=== PATIENT | male | born 1970 | race Caucasian/White ===

== ENCOUNTER 2016-07-02 00:34 | Emergency (ER) | payer SELFPAY ==
[~2016-07-02] VITALS: Ht 172.7 cm; Wt 87.0 kg
[~2016-07-02 00:34] MED LIST: IBUP-238 PO; LOVA40TA PO; METO50TA PO; ST JTAB PO
[2016-07-02 00:36] VITALS: BP 125/71; PULSE 70; RESP 16; TEMP 98.2; O2SAT 98
[2016-07-02] MEDS ORDERED: NEUR300C PO (01:06)
[2016-07-02] MEDS ORDERED: ACYC800T PO (01:06)
--- NOTE | 2016-07-02 01:10 | PD ---
HPI Chief Complaint: Skin Problem Time Seen by Provider: 01:07 Travel History International Travel<30 days: No Contact w/Intl Traveler<30days: No Traveled to known affect area: No History of Present Illness HPI 46-year-old white male presents to emergency Department with complaints of a skin rash to his right side. He states that he has been feeling under the weather for the last 5 days. He has had general malaise followed by pain in his right side. Now in the last 24 hours she's developed a rash. He is concerned that he may be mariano shingles. Pain is moderate. No alleviating factors. PFSH Past Medical History Hx Anticoagulant Therapy: Yes Anxiety: Yes Cardiovascular Problems: Yes (HTN) Cerebrovascular Accident: Yes (CVA 2012) Diabetes: Yes (BORDERLINE) Diminished Hearing: No Hypertension: Yes Immunizations Current: Yes Tetanus Vaccination: < 5 Years Past Surgical History Tonsillectomy: Yes (ADENOIDS ONLY) Social History Alcohol Use: No Tobacco Use: Yes (2 PPD) Substance Use: No Allergies-Medications (Allergen,Severity, Reaction): Coded Allergies: No Known Allergies (Unverified , 07/02/16) Reported Meds & Prescriptions Reported Meds & Active Scripts Active Neurontin (Gabapentin) 300 Mg Cap 300 Mg PO TID Acyclovir 800 Mg Tab 800 Mg PO 5 TIMES A DAY 7 Days Lovastatin 40 Mg Tab 40 Mg PO DAILY Metoprolol Tartrate 50 Mg Tab 50 Mg PO DAILY Motrin (Ibuprofen) 800 Mg Tab 800 Mg PO TID Lovastatin 40 Mg Tab 40 Mg PO HS Metoprolol Tartrate 50 mg (Metoprolol Tartrate) 50 Mg Tab 50 Mg PO DAILY Reported Aspirin Ec Low Strength (Aspirin) 81 Mg Tab 81 Mg PO DAILY Review of Systems Except as stated in HPI: all other systems reviewed are Neg Physical Exam Narrative GENERAL: Well-developed, well-nourished in no apparent distress. Nontoxic appearing. HEAD: Normocephalic, atraumatic. EYES: Pupils equal round and reactive. Extraocular motions intact. No scleral icterus. No injection or drainage. ENT: Nose clear. Throat without erythema, tonsillar hypertrophy or exudate. Uvula midline. Airway patent. NECK: Trachea midline. Supple, nontender, moves head freely. No central bony tenderness or spasm. CARDIOVASCULAR: Regular rate and rhythm without murmurs, gallops, or rubs. RESPIRATORY: Clear to auscultation. Breath sounds equal bilaterally. No wheezes , rales, or rhonchi. GASTROINTESTINAL: Abdomen soft, non-tender, nondistended. No hepato-splenomegaly , or palpable masses. No guarding. EXTREMITIES: No clubbing, cyanosis, or edema. No joint tenderness. BACK: Nontender without deformity. No flank tenderness. NEUROLOGICAL: Awake, alert and oriented x 3 .Cranial nerves grossly intact. Motor and sensory grossly within normal limits. Normal speech. Skin: Patient has a erythematous rash in a dermatomal fashion on the right posterior back and right side in the T4 distribution. Data Data Last Documented VS Vital Signs Date Time Temp Pulse Resp B/P Pulse Ox O2 Delivery O2 Flow Rate FiO2 07/02/16 00:36 98.2 70 16 125/71 98 MDM Medical Decision Making Medical Screen Exam Complete: Yes Emergency Medical Condition: Yes Medical Record Reviewed: Yes Differential Diagnosis MDM: High Differential diagnoses: Abscess, folliculitis, cellulitis, lymphangitis, abrasion, contact dermatitis, shingles Narrative Course Patient is given acyclovir 800 mg by mouth and Neurontin 300 mg by mouth. This is acute varicella zoster Diagnosis Primary Impression: aCUTE VARICELLA ZOSTER Patient Instructions: General Instructions Additional Instructions: Rest. Daily wound care with soap and water and apply calamine lotion. Acyclovir and Neurontin. Follow-up with the clinic this week. Call on Sunday for an appointment. Avoid young children or the elderly when you have an active rash. Return to the ER if any problems. Med/Other Pt SpecificInfo: Prescription(s) given, Wound Care Scripts Gabapentin (Neurontin)300 Mg [id number] Mg PO TID #30 CAP Ref 0 Prov:Alexander Calderón MD 07/02/16 Acyclovir 800 Mg [id number] Mg PO 5 TIMES A DAY 7 Days Ref 0 Prov:Alxeander Calderón MD 07/02/16 Disposition: DISCHARGE HOME Condition: Stable Meek Betancur Jul 02, 2016 01:10
[2016-07-02] MEDS ORDERED: GABAPENTIN 300 MG CAP PO ONE (01:15)
[2016-07-02] MEDS ORDERED: ACYCLOVIR 800 MG TAB PO ONE (01:15)
[2016-09-05] MEDS ORDERED: METO50TA PO (10:39)
== END 2016-07-02 02:01 | disposition home or self-care (01) ==
LOC: NEPB 00:34
DX: B02.9 Zoster without complications (principal); I10 Essential (primary) hypertension; F17.210 Nicotine dependence, cigarettes, uncomplicated
CPT/HCPCS: 99283

== ENCOUNTER 2016-12-23 09:40 | Emergency (ER) | payer SELFPAY ==
[~2016-12-23] VITALS: Ht 172.7 cm; Wt 79.0 kg
[~2016-12-23 09:40] MED LIST changes: +ACYC800T PO; +NEUR300C PO
[2016-12-23 09:41] VITALS: BP 117/73; PULSE 80; RESP 14; TEMP 98.4; O2SAT 98
[2016-12-23] MEDS ORDERED: AUGM875T3 PO (09:49)
--- NOTE | 2016-12-23 09:49 | PD ---
HPI Chief Complaint: ENT Complaint Time Seen by Provider: 09:46 Travel History International Travel<30 days: No Contact w/Intl Traveler<30days: No Traveled to known affect area: No History of Present Illness HPI 46-year-old male smoker here with complaint of sore throat times one day. Right greater than left. Some pain with swallowing but no difficulty swallowing. No documented fever, but subjective fever this morning. No cough. No recent travel or sick contacts. PFSH Past Medical History Hx Anticoagulant Therapy: Yes Anxiety: Yes Cardiovascular Problems: Yes (HTN) Cerebrovascular Accident: Yes Diabetes: Yes (BORDERLINE) Diminished Hearing: No Hypertension: Yes Immunizations Current: Yes Past Surgical History Tonsillectomy: Yes (ADENOIDS ONLY) Social History Alcohol Use: No Tobacco Use: Yes (2 PPD) Substance Use: No Allergies-Medications (Allergen,Severity, Reaction): Coded Allergies: No Known Allergies (Unverified , 07/02/16) Reported Meds & Prescriptions Reported Meds & Active Scripts Active Augmentin (Amoxicillin-Clavulanate) 875-125 Mg Tab 1 Tab PO BID Metoprolol Tartrate 50 Mg Tab 50 Mg PO DAILY Neurontin (Gabapentin) 300 Mg Cap 300 Mg PO TID Acyclovir 800 Mg Tab 800 Mg PO 5 TIMES A DAY 7 Days Lovastatin 40 Mg Tab 40 Mg PO DAILY Motrin (Ibuprofen) 800 Mg Tab 800 Mg PO TID Lovastatin 40 Mg Tab 40 Mg PO HS Metoprolol Tartrate 50 mg (Metoprolol Tartrate) 50 Mg Tab 50 Mg PO DAILY Reported Aspirin Ec Low Strength (Aspirin) 81 Mg Tab 81 Mg PO DAILY Review of Systems Except as stated in HPI: all other systems reviewed are Neg Physical Exam Narrative GENERAL: Well-appearing male in no acute distress smelling heavily of tobacco SKIN: Focused skin assessment warm/dry. HEAD: Normocephalic. EYES: No scleral icterus. No injection or drainage. ENT: No nasal bleeding or discharge. Mucous membranes pink and moist. Posterior pharynx with tonsillar erythema, 2+ tonsils, exudate with palatal petechiae NECK: Anterior cervical lymphadenopathy CARDIOVASCULAR: Regular rate and rhythm. RESPIRATORY: No accessory muscle use. MUSCULOSKELETAL: Normal gait NEUROLOGICAL: Awake and alert. Normal speech. PSYCHIATRIC: Appropriate mood and affect; insight and judgment normal. Data Data Last Documented VS Vital Signs Date Time Temp Pulse Resp B/P Pulse Ox O2 Delivery O2 Flow Rate FiO2 12/23/16 09:41 98.4 80 14 117/73 98 MDM Medical Decision Making Medical Screen Exam Complete: Yes Emergency Medical Condition: Yes Medical Record Reviewed: Yes Differential Diagnosis 46-year-old male here with complaints of sore throat times one day. Based on his Centor score, I would treat him empirically for bacterial pharyngitis. Differential includes viral pharyngitis, viral syndrome. No evidence of peritonsillar abscess, retropharyngeal abscess, epiglottitis on exam Narrative Course Antibiotics for home Diagnosis Primary Impression: Bacterial pharyngitis Additional Impression: Tobacco abuse Referrals: [facility] as needed This is a clinic who sees patients with and without insurance. Follow-up as needed. Additional Instructions: Antibiotics as prescribed. Salt water gargles. Smoking cessation is discussed. Med/Other Pt SpecificInfo: Prescription(s) given Scripts Amoxicillin-Clavulanate (Augmentin)875-125 Mg Tab1 Tab PO BID #10 TAB Ref 0 Prov:Ambar Hernandez MD 12/23/16 Disposition: 01 DISCHARGE HOME Condition: Stable Ambar Hernandez MD Dec 23, 2016 09:49
== END 2016-12-23 10:10 | disposition home or self-care (01) ==
LOC: NEPD 09:40
DX: J02.9 Acute pharyngitis, unspecified (principal); F17.210 Nicotine dependence, cigarettes, uncomplicated
CPT/HCPCS: 99283

== ENCOUNTER 2017-10-03 08:41 | Emergency (ER) | payer OTHER ==
[~2017-10-03] VITALS: Ht 172.7 cm; Wt 75.0 kg
[~2017-10-03 08:41] MED LIST changes: -ACYC800T PO; -IBUP-238 PO; -NEUR300C PO; -ST JTAB PO
[2017-10-03 08:43] VITALS: BP 125/69; PULSE 90; RESP 20; TEMP 98; O2SAT 98
[2017-10-03] MEDS ORDERED: COUM1TAB PO (08:51)
[2017-10-03] MEDS ORDERED: AMOX875T PO (08:53)
[2017-10-03] MEDS ORDERED: FLUT1SPR5 EACH NARE (08:53)
--- NOTE | 2017-10-03 08:59 | PD ---
HPI Chief Complaint: ENT Complaint Time Seen by Provider: 08:50 Travel History International Travel<30 days: No Contact w/Intl Traveler<30days: No Traveled to known affect area: No History of Present Illness HPI 47-year-old male presents emergency department with complaints of sore throat, headache, postnasal drip, for the last several days. Patient has sore throat which he thinks may be strep. He denies significant fever or ear pain. He denies significant cough although he is a smoker. He denies chest pain, nausea, vomiting, or heartburn. Throat pain is 8 out of 10. He has no known drug allergies. PFSH Past Medical History Hx Anticoagulant Therapy: Yes Anxiety: Yes Cardiovascular Problems: Yes High Cholesterol: Yes Cerebrovascular Accident: Yes Diabetes: Yes (BORDERLINE) Patient Takes Glucophage: No Diminished Hearing: No Hypertension: Yes Medical other: Yes (stroke) Immunizations Current: Yes Tetanus Vaccination: Unknown Influenza Vaccination: No Past Surgical History Tonsillectomy: Yes (ADENOIDS ONLY) Social History Alcohol Use: No Tobacco Use: Yes (/2 PPD) Substance Use: No Allergies-Medications (Allergen,Severity, Reaction): Coded Allergies: No Known Allergies (Unverified Adverse Reaction, Unknown, 10/03/17) Reported Meds & Prescriptions Reported Meds & Active Scripts Active Flonase Nasal [place] (Fluticasone Nasal [place]) 50 Mcg/Act [place] 100 Mcg EACH NARE BID Amoxicillin 875 Mg Tab 875 Mg PO BID 10 Days Lovastatin 40 Mg Tab 40 Mg PO DAILY Reported Coumadin (Warfarin) 1 Mg Tab 1 Mg PO DAILY Review of Systems Except as stated in HPI: all other systems reviewed are Neg General / Constitutional: No: Fever, Chills Eyes: No: Visual changes HENT: Positive: Headaches, Sore Throat, Rhinitis, Rhinorrhea, Congestion, No: Vertigo, Lightheadedness, Nosebleed, Neck Stiffness, Neck Pain, Masses, Gingival Bleeding, Dental Difficulties, Ear Discharge, Earache Cardiovascular: No: Chest Pain or Discomfort Respiratory: Positive: Cough (From postnasal drip), No: Shortness of Breath, Wheezing Gastrointestinal: No: Nausea, Vomiting, Diarrhea, Abdominal Pain Genitourinary: No: Dysuria Musculoskeletal: No: Pain Skin: No Rash Neurologic: No: Weakness Psychiatric: No: Depression Endocrine: No: Polydipsia Hematologic/Lymphatic: No: Easy Bruising Physical Exam Narrative GENERAL: Patient appears ill but not septic. SKIN: Warm and dry. Normal color. Normal turgor HEAD: Atraumatic. Normocephalic. Patient has mild to moderate sinus tenderness with palpation to the frontal and maxillary sinuses bilaterally. EYES: Pupils equal and round. No scleral icterus. No injection or drainage. ENT: No nasal bleeding or discharge. Mucous membranes pink and moist. TMs are somewhat dull bilaterally with no injection. Patient has obvious postnasal drip , erythema, and swelling of the posterior pharynx. No exudate is noted. Airway is patent. NECK: Trachea midline. Supple without significant lymphadenopathy. CARDIOVASCULAR: Regular rate and rhythm. RESPIRATORY: No accessory muscle use. Clear to auscultation. Breath sounds equal bilaterally. MUSCULOSKELETAL: Extremities without clubbing, cyanosis, or edema. No obvious deformities. NEUROLOGICAL: Awake and alert. No obvious cranial nerve deficits. Motor grossly within normal limits. Five out of 5 muscle strength in the arms and legs. Normal speech. PSYCHIATRIC: Appropriate mood and affect; insight and judgment normal. Data Data Last Documented VS Vital Signs Date Time Temp Pulse Resp B/P (MAP) Pulse Ox O2 Delivery O2 Flow Rate FiO2 10/03/17 08:43 98.0 90 20 125/69 (87) 98 MDM Medical Decision Making Medical Screen Exam Complete: Yes Emergency Medical Condition: Yes Differential Diagnosis Upper respiratory infection. Pharyngitis. Postnasal drip. Sinusitis. Narrative Course Patient is medically stable at time of exam. Patient is given amoxicillin 875 mg twice daily for 10 days. Patient is placed on Flonase nasal spray 2 sprays daily. Work note is given. Patient to follow-up as needed. Diagnosis Primary Impression: Acute pansinusitis, unspecified Qualified Codes: J01.40 - Acute pansinusitis, unspecified Patient Instructions: General Instructions Departure Forms: Work Release Enter return to work date: October 04, 2017 Additional Instructions: Patient is given amoxicillin 875 mg twice daily for 10 days. Patient is placed on Flonase nasal spray 2 sprays daily. Work note is given. Patient to follow-up as needed. Med/Other Pt SpecificInfo: Prescription(s) given Scripts Fluticasone Nasal [place] (Flonase Nasal [place]) 50 Mcg/Act [place] 100 MCG EACH NARE BID for Allergies, #1 BOTTLE 0 Refills Prov: Homero Kowalski MD 10/03/17 Amoxicillin (Amoxicillin) 875 Mg Tab 875 MG PO BID for Infection for 10 Days, #20 TAB 0 Refills Prov: Homero Kowalski MD 10/03/17 Disposition: 01 DISCHARGE HOME Condition: Emmanuel Lawson October 03, 2017 08:59
== END 2017-10-03 09:29 | disposition home or self-care (01) ==
LOC: NEPD 08:41
DX: J01.40 Acute pansinusitis, unspecified (principal); F17.210 Nicotine dependence, cigarettes, uncomplicated; E78.00 Pure hypercholesterolemia, unspecified
CPT/HCPCS: 99283

== ENCOUNTER 2017-11-22 21:18 | Emergency (ER) | payer OTHER ==
[~2017-11-22] VITALS: Ht 172.7 cm; Wt 89.0 kg
[~2017-11-22 21:18] MED LIST changes: +AMOX875T PO; +COUM1TAB PO; +FLUT1SPR5 EACH NARE; -METO50TA PO
[2017-11-22 21:23] VITALS: BP 129/71; PULSE 97; RESP 24; TEMP 98; O2SAT 97
[2017-11-23 00:13] VITALS: BP 127/73; PULSE 62; RESP 18; O2SAT 96
--- NOTE | 2017-11-23 00:20 | PD ---
HPI . flank pain Chief Complaint: Complaint Time Seen by Provider: 23:10 Travel History International Travel<30 days: No Contact w/Intl Traveler<30days: No Traveled to known affect area: No History of Present Illness HPI Patient has left-sided flank pain that started yesterday in the lateral left back and now is radiating around his left abdomen lower left and then radiating towards his left groin he has some dysuria and he has worried that he is having some nausea when the pain is severe. He has a history of stones 2 years ago he had a stone that came out with conservative management he got fluid at that time he did not need an intervention he has a history of hypertension he also has a history of diet-controlled diabetes his main complaint is pain dull aching in the left lateral abdomen radiating towards the groin not relieved by home Motrin patient in the ER does not appear toxic does not appear to be in severe distress severity of the pain is moderate and currently it is mild PFSH Past Medical History Hx Anticoagulant Therapy: Yes Anxiety: Yes Cardiovascular Problems: Yes High Cholesterol: Yes Cerebrovascular Accident: Yes Diabetes: Yes (BORDERLINE) Patient Takes Glucophage: No Diminished Hearing: No Hypertension: Yes Immunizations Current: Yes ?: Not Past Surgical History Tonsillectomy: Yes (ADENOIDS ONLY) Social History Alcohol Use: No Tobacco Use: Yes (1/2 PPD (LAST USE 1 WEEK AGO)) Substance Use: No Allergies-Medications (Allergen,Severity, Reaction): Coded Allergies: No Known Allergies (Unverified Adverse Reaction, Unknown, 11/23/17) Reported Meds & Prescriptions Reported Meds & Active Scripts Active Flonase Nasal [place] (Fluticasone Nasal [place]) 50 Mcg/Act [place] 100 Mcg EACH NARE BID Amoxicillin 875 Mg Tab 875 Mg PO BID 10 Days Lovastatin 40 Mg Tab 40 Mg PO DAILY Reported Coumadin (Warfarin) 1 Mg Tab 1 Mg PO DAILY Review of Systems Except as stated in HPI: all other systems reviewed are Neg Physical Exam Narrative GENERAL: alert awake non toxic no apparent distress SKIN: Warm and dry. HEAD: Atraumatic. Normocephalic. EYES: Pupils equal and round. No scleral icterus. No injection or drainage. ENT: No nasal bleeding or discharge. Mucous membranes pink and moist. NECK: Trachea midline. No JVD. CARDIOVASCULAR: Regular rate and rhythm. RESPIRATORY: No accessory muscle use. Clear to auscultation. Breath sounds equal bilaterally. GASTROINTESTINAL: Abdomen LLQ pain and left lateral abdo pain MUSCULOSKELETAL: Extremities without clubbing, cyanosis, or edema. No obvious deformities. NEUROLOGICAL: Awake and alert. No obvious cranial nerve deficits. Motor grossly within normal limits. Five out of 5 muscle strength in the arms and legs. Normal speech. PSYCHIATRIC: Appropriate mood and affect; insight and judgment normal. Data Data Last Documented VS Vital Signs Date Time Temp Pulse Resp B/P (MAP) Pulse Ox O2 Delivery O2 Flow Rate FiO2 11/23/17 05:28 55 16 134/77 (96) 99 Room Air 11/22/17 21:23 98.0 Orders Orders Urinalysis - C+S If Indicated (11/22/17 23:50) Complete Blood Count With Diff (11/22/17 23:51) Comprehensive Metabolic Panel (11/22/17 23:51) Ct Abd/Pel W/O Iv Contrast (11/23/17 ) Ketorolac Inj (Toradol Inj) (11/23/17 02:00) Sodium Chlor 0.9% 1000 Ml Inj (Ns 1000 M (11/23/17 02:00) Oxycodone-Acetamin 10-325 Mg (Percocet 1 (11/23/17 05:15) Labs Laboratory Tests Test 11/22/17 23:58 11/23/17 00:32 Urine Color YELLOW Urine Turbidity CLEAR Urine pH 5.0 Urine Specific [place] 1.025 Urine Protein NEG mg/dL Urine Glucose (UA) NEG mg/dL Urine Ketones TRACE mg/dL Urine Occult Blood LARGE Urine Nitrite NEG Urine Bilirubin NEG Urine Urobilinogen 2.0 mg/dL Urine Leukocyte Esterase NEG Urine RBC 58 /hpf Urine WBC 4 /hpf Urine Squamous Epithelial Cells <1 /hpf Urine Hyaline Casts 1 /lpf Urine Mucus MOD /lpf Microscopic Urinalysis Comment CULT NOT INDICATED White Blood Count 12.4 TH/MM3 Red Blood Count 4.99 MIL/MM3 Hemoglobin 15.3 GM/DL Hematocrit 46.4 % Mean Corpuscular Volume 92.9 FL Mean Corpuscular Hemoglobin 30.6 PG Mean Corpuscular Hemoglobin Concent 33.0 % Red Cell Distribution Width 13.8 % Platelet Count 357 TH/MM3 Mean Platelet Volume 8.7 FL Neutrophils (%) (Auto) 59.7 % Lymphocytes (%) (Auto) 28.6 % Monocytes (%) (Auto) 7.0 % Eosinophils (%) (Auto) 3.5 % Basophils (%) (Auto) 1.2 % Neutrophils # (Auto) 7.4 TH/MM3 Lymphocytes # (Auto) 3.5 TH/MM3 Monocytes # (Auto) 0.9 TH/MM3 Eosinophils # (Auto) 0.4 TH/MM3 Basophils # (Auto) 0.2 TH/MM3 CBC Comment DIFF FINAL Differential Comment Blood Urea Nitrogen 13 MG/DL Creatinine 0.83 MG/DL Random Glucose 127 MG/DL Total Protein 6.6 GM/DL Albumin 3.4 GM/DL Calcium Level 8.7 MG/DL Alkaline Phosphatase 122 U/L Aspartate Amino Transf (AST/SGOT) 26 U/L Alanine Aminotransferase (ALT/SGPT) 43 U/L Total Bilirubin 0.1 MG/DL Sodium Level 143 MEQ/L Potassium Level 4.2 MEQ/L Chloride Level 111 MEQ/L Carbon Dioxide Level 23.6 MEQ/L Anion Gap 8 MEQ/L Estimat Glomerular Filtration Rate 98 ML/MIN MDM Medical Decision Making Medical Screen Exam Complete: Yes Emergency Medical Condition: Yes Medical Record Reviewed: Yes Differential Diagnosis renal colic vs stone kidney vs diverticultis vs colitis vs testicle torsion vs other Narrative Course 2 separate 2 mm stones at left UVJ pt given fluid and toradol and then PO percocet ready fro discharge follow up as outpt Diagnosis Primary Impression: Renal colic on left side Referrals: Gurmeet Pitts MD Patient Instructions: General Instructions, Kidney Stones (ED) Scripts Ibuprofen (Ibuprofen) 600 Mg Tab 600 MG PO Q6H Y for Pain/Inflammation, #20 TAB 0 Refills Prov: Gaurav Awad MD 11/23/17 Hydrocodone-Acetaminophen ([place]) 5 Mg-325 Mg Tab 1 TAB PO Q6H Y for PAIN, #10 TAB 0 Refills Prov: Gaurav Awad MD 11/23/17 Tamsulosin (Flomax) 0.4 Mg Cap 0.4 MG PO HS for Manage Prostate Problems, #10 CAP 0 Refills Prov: Gaurav Awad MD 11/23/17 Disposition: 01 DISCHARGE HOME Condition: Good Gaurav Awad MD Nov 23, 2017 00:20
[2017-11-23 00:58] LABS: AUTOMATED NEUTROPHIL # 7.4 TH/MM3 (1.8-7.7); BASOPHIL # 0.2 TH/MM3 (0-0.2); BASOPHIL % 1.2 % (0.0-2.0); EOSINOPHIL # 0.4 TH/MM3 (0-0.4); EOSINOPHIL % 3.5 % (0.0-4.0); HEMATOCRIT 46.4 % (39.0-51.0); HEMOGLOBIN 15.3 GM/DL (13.0-17.0); LYMPH % 28.6 % (9.0-44.0); LYMPHOCYTE # 3.5 TH/MM3 (1.0-4.8); MEAN CELL VOLUME 92.9 FL (80.0-100.0); MEAN CORPUSCULAR HEMOGLOBIN 30.6 PG (27.0-34.0); MEAN PLATELET VOLUME 8.7 FL (7.0-11.0); MONOCYTE # 0.9 TH/MM3 (0-0.9); NEUT % 59.7 % (16.0-70.0); PLATELET COUNT 357 TH/MM3 (150-450); RED BLOOD COUNT 4.99 MIL/MM3 (4.50-5.90); RED CELL DISTRIBUTION WIDTH 13.8 % (11.6-17.2); WHITE BLOOD COUNT 12.4 TH/MM3 (4.0-11.0)
[2017-11-23 01:10] LABS: BILIRUBIN, URINE NEG (NEG); BLOOD, URINE LARGE (NEG); GLUCOSE,URINE NEG (NEG); HYALINE CAST, URINE 1 /lpf (RARE); KETONE, URINE TRACE mg/dL (NEG); MUCUS URINE MOD /lpf (OCC); NITRITE,URINE NEG (NEG); SQUAMOUS EPITHELIAL CELL URINE <1 /hpf (0-5); URINE COLOR YELLOW (YELLW/STRAW); URINE LEUKOCYTE ESTERASE NEG (NEG)
[2017-11-23 01:11] LABS: ALKALINE PHOSPHATASE 122 U/L (45-117); TOTAL BILIRUBIN ADULT 0.1 MG/DL (0.2-1.0); TOTAL PROTEIN 6.6 GM/DL (6.4-8.2)
[2017-11-23 01:17] LABS: ALBUMIN 3.4 GM/DL (3.4-5.0); ALT (GPT) 43 U/L (12-78); AST (GOT) 26 U/L (15-37); BICARBONATE 23.6 MEQ/L (21.0-32.0); BLOOD UREA NITROGEN 13 MG/DL (7-18); CALCIUM 8.7 MG/DL (8.5-10.1); CHLORIDE 111 MEQ/L (98-107); CREATININE 0.83 MG/DL (0.60-1.30); GLOMERULAR FILTRATION RATE 98 ML/MIN (>89); GLUCOSE,RANDOM 127 MG/DL (74-106); SODIUM (NA) 143 MEQ/L (136-145)
--- NOTE | 2017-11-23 01:38 | RADRPT ---
EXAM DATE: 11/23/2017 1:25 AM EDT AGE/SEX: 47 years / Male INDICATIONS: Dysuria and left flank pain. CLINICAL DATA: This is the patient's initial encounter. Patient reports that signs and symptoms have been present for 2 days and indicates a pain score of 7/10. MEDICAL/SURGICAL HISTORY: Cerebrovascular disease. Hypertension. Gastroesophageal reflux dise ase. None. RADIATION DOSE: 8.52 CTDI (mGy) COMPARISON: No prior exams available for comparison. TECHNIQUE: Multiple contiguous axial images were obtained through the abdomen. Images were obtained using multiple row detector helical technique. Using automated exposure control and adjustment of the mA and/or kV according to patient size, radiation dose was kept as low as reasonably achievable to o btain optimal diagnostic quality images. DICOM format image data is available electronically for rev iew and comparison. FINDINGS: Lower Lungs: The visualized lower lungs are clear. Liver: The liver has a homogeneous density without space-occupying lesion. There is no dilation of th e biliary tree. Spleen: Homogeneous density without enlargement. Pancreas: Unremarkable without mass or calcification. Kidneys: Normal in size and shape. No evidence of mass or hydronephrosis. There are no renal calculi . There is a tiny 2 mm distal left ureteral calculus located approximately 2 cm above the ossicular j unction. Adrenal Glands: Unremarkable. Aorta: The aorta and proximal iliac vessels are grossly unremarkable without aneurysmal dilation. Bowel/Mesentery: The bowel loops are grossly unremarkable. The cecum and sigmoid colon have a normal configuration. Abdominal Wall: Intact. Retroperitoneum: No evidence of adenopathy in the retrocrural, para-aortic, or deep pelvic regions. Bladder: Contours are smooth. Reproductive Organs: No abnormal masses or calcifications seen. Inguinal: The inguinal region is unremarkable without evidence of adenopathy. Bony Structures: Unremarkable. CONCLUSION: 1. Small 2 mm distal left ureteral calculus just above the level of the ureterovesicular junction. 2. Kidneys are unremarkable in appearance with no hydronephrosis or renal calculi. Electronically signed by: Xu Keyes MD 11/23/2017 1:37 AM EDT
[2017-11-23] MEDS ORDERED: SODIUM CHLOR 0.9% 1000 ML INJ 1,000 ML IV ONE (02:00)
[2017-11-23] MEDS ORDERED: KETOROLAC TROMETHAMINE 30 MG/ML (IVP) VIAL IV PUSH ONE (02:00)
[2017-11-23] MEDS ORDERED: oxyCODONE/ACETAMINOPHEN 10 MG/325 MG TAB PO ONE (05:15)
[2017-11-23 05:28] VITALS: BP 134/77; PULSE 55; RESP 16; O2SAT 99
[2017-11-23] MEDS ORDERED: NORC5TAB PO (05:44)
[2017-11-23] MEDS ORDERED: TAMS5CAP PO (05:44)
[2017-11-23] MEDS ORDERED: IBUP-232 PO (05:45)
== END 2017-11-23 06:10 | disposition home or self-care (01) ==
LOC: NEPE 21:18
DX: N23 Unspecified renal colic (principal); F41.9 Anxiety disorder, unspecified; E78.00 Pure hypercholesterolemia, unspecified; R73.03 Prediabetes; I10 Essential (primary) hypertension; F17.200 Nicotine dependence, unspecified, uncomplicated; Z79.82 Long term (current) use of aspirin; Z86.73 Personal history of transient ischemic attack (TIA), and cerebral infarction without residual deficits; Z79.899 Other long term (current) drug therapy
CPT/HCPCS: 74176; 80053; 81001; 85025; 96361; 96374; 99284; J1885; J7030